=== PATIENT | female | born 1990 | race Hispanic/Latino ===

== ENCOUNTER 2017-10-10 19:50 | Observation (INO) | payer OTHER ==
[2017-10-10] MEDS ORDERED: Sodium Chloride 0.9% 1,000 ML IV STA ×2 (20:24→23:18)
[2017-10-10] MEDS ORDERED: Morphine 2 mg/ml ISec IVP STA ×2 (20:24→23:11)
[2017-10-10 20:38] LABS: HEMOGLOBIN 13.6 g/dL (12.0-16.0); MEAN CELL VOLUME 83.5 fl (80.0-105.0); MEAN CORPUSCULAR HEMOGLOBIN 27.6 pg (25.0-35.0); MEAN CORPUSCULAR HGB CONC 33.1 g/dl (31.0-37.0); MEAN PLATELET VOLUME 9.7 fl (7.0-11.0); RBC 4.92 10^6/uL (3.5-6.1); RED CELL DISTRIBUTION WIDTH 13.2 % (11.5-14.5); WHITE BLOOD COUNT 5.2 10^3/ul (4.5-11.0)
[2017-10-10 20:41] LABS: URINE BILIRUBIN NEGATIVE (NEGATIVE); URINE BLOOD NEGATIVE (NEGATIVE); URINE GLUCOSE (UA) NEGATIVE (NEGATIVE); URINE LEUKOCYTE ESTERASE SMALL Leu/uL (NEGATIVE); URINE PROTEIN TRACE mg/dL (<30 mg/dL); URINE UROBILINOGEN 0.2 E.U./dL (<1 E.U./dL)
[2017-10-10 20:42] LABS: URINE APPEARANCE CLEAR (CLEAR); URINE COLOR LIGHT YELLOW (YELLOW)
[2017-10-10 20:45] LABS: URINE BACTERIA FEW (NEG); URINE RBC 0 - 2 /hpf (0-2)
[2017-10-10 20:48] LABS: ALB/GLOB RATIO 1.4 (1.1-1.8); ALT/SGPT 27 U/L (7-56); AST/SGOT 23 U/L (14-36); BLOOD UREA NITROGEN 17 mg/dL (7-21); CALCIUM 9.8 mg/dL (8.4-10.5); GFR AFRICAN-AMERICAN > 60; GFR NON-AFRICAN AMERICAN > 60; LIPASE 154 U/L (23-300)
--- NOTE | 2017-10-10 20:58 | ED PDOC ---
Arrival/HPI - General Chief Complaint: Abdominal Pain Time Seen by Provider: 10/10/17 20:05 Historian: Patient - History of Present Illness Narrative History of Present Illness (Text): 10/10/17 20:58 27 year old female, with no significant past medical history, presents to the Emergency department complaining of right upper abdominal discomfort since earlier today. Patient informs worsening sharp pain associated with nausea, prompting her to present to the Emergency department for medical evaluation. Patient denies any fever, chills, vomiting, diarrhea, dysuria, vaginal discharge , chest pain, shortness of breath or any other complaints. Time/Duration: 4-6 hours Symptom Onset: Gradual Symptom Course: Unchanged Quality: Aching Context: Home Past Medical History - Provider Review Nursing Documentation Reviewed: Yes - Cardiac Hx Cardiac Disorders: No - Pulmonary Hx Respiratory Disorders: No - Neurological Hx Neurological Disorder: Yes Hx Migraine: Yes - HEENT Hx HEENT Disorder: No - Renal Hx Renal Disorder: No - Endocrine/Metabolic Hx Endocrine Disorders: No - Hematological/Oncological Hx Blood Disorders: No - Integumentary Hx Dermatological Disorder: No - Musculoskeletal/Rheumatological Hx Musculoskeletal Disorders: No - Gastrointestinal Hx Gastrointestinal Disorders: No - Genitourinary/Gynecological Hx Genitourinary Disorders: No - Psychiatric Hx Psychophysiologic Disorder: No Hx Substance Use: No Family/Social History - Physician Review Nursing Documentation Reviewed: Yes Family/Social History: No Known Family HX Smoking Status: Never Smoked Hx Alcohol Use: No Hx Substance Use: No Allergies/Home Meds Allergies/Adverse Reactions: Allergies No Known Allergies Allergy (Verified 10/10/17 20:06) Home Medications: Home Meds Medication Instructions Recorded Confirmed No Known Home Med 10/10/17 10/10/17 Review of Systems - Physician Review All systems were reviewed & negative as marked: Yes - Review of Systems Constitutional: absent: Fevers Respiratory: absent: SOB Cardiovascular: absent: Chest Pain Gastrointestinal: Abdominal Pain, Nausea. absent: Diarrhea, Vomiting Genitourinary Female: absent: Dysuria, Vaginal Discharge Physical Exam Vital Signs Reviewed: Yes Vital Signs Temp Pulse Resp BP Pulse Ox 10/10/17 20:06 99.2 F 102 H 22 117/81 99 Temperature: Afebrile Blood Pressure: Normal Pulse: Tachycardic Respiratory Rate: Normal Appearance: Positive for: Well-Appearing, Non-Toxic, Comfortable Pain Distress: None Mental Status: Positive for: Alert and Oriented X 3 - Systems Exam Head: Present: Atraumatic, Normocephalic Pupils: Present: PERRL Extroacular Muscles: Present: EOMI Conjunctiva: Present: Normal Respiratory/Chest: Present: Clear to Auscultation, Good Air Exchange. No: Respiratory Distress, Accessory Muscle Use Cardiovascular: Present: Regular Rate and Rhythm, Normal S1, S2. No: Murmurs Abdomen: Present: Tenderness (Tenderness to palpation on right upper quadrant ) . No: Distention, Peritoneal Signs Back: Present: Normal Inspection Upper Extremity: Present: Normal Inspection. No: Cyanosis, Edema Lower Extremity: Present: Normal Inspection. No: Edema Neurological: Present: GCS=15, CN II-XII Intact, Speech Normal Skin: Present: Warm, Dry, Normal Color. No: Rashes Psychiatric: Present: Alert, Oriented x 3, Normal Insight, Normal Concentration Medical Decision Making ED Course and Treatment: 10/10/17 20:23 Impression: 27 year old female presents to the Emergency department for right upper abdominal pain and nausea. Plan: -- Labs -- Morphine -- IV Fluids -- Zofran -- Urine Culture -- Urinalysis -- US of Gallbladder -- Reassess and disposition Prior Visits: Notes and results from previous visits were reviewed. Progress Notes: 10/10/17 21:05 US Gallbladder and Pancreas shows: Liver: Hepatic steatosis. Gallbladder: Cholelithiasis. Borderline gallbladder wall thickness. No evidence of pericholecystic fluid. Sonographic Lucero sign is negative. Common bile duct: Measures 4 mm Pancreas: Unremarkable as visualized. Right kidney: Unremarkable. No hydronephrosis. IMPRESSION: 1. Hepatic steatosis. 2. Cholelithiasis. Borderline gallbladder wall thickness. No evidence of pericholecystic fluid. Sonographic Lucero sign is negative. 10/10/17 23:[address] Beauchamp, who is aware and agrees with plan. Accepts pt in to his service. Pt will go to [facility] observation for biliary colic. Requests Dr. Bain on consult. - Lab Interpretations Lab Results: 10/10/17 20:30 10/10/17 20:30 Lab Results 10/10/17 20:30: WBC 5.2, RBC 4.92, Hgb 13.6, Hct 41.1, MCV 83.5, MCH 27.6, MCHC 33.1, RDW 13.2, Plt Count 313, MPV 9.7 10/10/17 20:30: Sodium 145, Potassium 3.7, Chloride 105, Carbon Dioxide 23, Anion Gap 21 H, BUN 17, Creatinine 0.5 L, Est GFR ( Amer) > 60, Est GFR ( Non-Af Amer) > 60, Random Glucose 103, Calcium 9.8, Total Bilirubin 0.7, AST 23 , ALT 27, Alkaline Phosphatase 75, Total Protein 8.6 H, Albumin 5.0 H, Globulin 3.5, Albumin/Globulin Ratio 1.4, Lipase 154 10/10/17 20:30: Urine Color Light yellow, Urine Appearance Clear, Urine pH 7.0, Ur Specific [place] 1.020, Urine Protein Trace H, Urine Glucose (UA) Negative, Urine Ketones Negative, Urine Blood Negative, Urine Nitrate Negative, Urine Bilirubin Negative, Urine Urobilinogen 0.2, Ur Leukocyte Esterase Small H, Urine RBC 0 - 2, Urine WBC 1 - 3, Ur Epithelial Cells 1 - 3, Urine Bacteria Few I have reviewed the lab results: Yes - RAD Interpretation Radiology Orders: 10/10/17 20:25 GALLBLADDER & PANCREAS [US] Stat Director Of Physician Practices: Radiologist - Medication Orders Current Medication Orders: Discontinued Medications Sodium Chloride (Sodium Chloride 0.9%) 1,000 mls @ 999 mls/hr IV .Q1H1M STA Stop: 10/10/17 21:24 Last Admin: 10/10/17 20:37 Dose: 999 mls/hr eMAR Start Stop Document 10/10/17 20:37 AD (Rec: 10/10/17 20:37 AD [id number]) Intravenous Solution Start Date 10/10/17 Start Time 20:37 Morphine Sulfate (Morphine) 2 mg IVP STAT STA Stop: 10/10/17 20:25 Last Admin: 10/10/17 20:37 Dose: 2 mg MAR Pain Assessment Document 10/10/17 20:37 AD (Rec: 10/10/17 20:38 AD [id number]) Pain Reassessment Is this a pain reassessment? No Presence of Pain Presence of Pain Yes Pain Scale Used Pain Scale Used Numeric Description Intensity of Pain at present 10 IVP Administration Document 10/10/17 20:37 AD (Rec: 10/10/17 20:38 AD [id number]) Charges for Administration # of IVP Administrations 1 Ondansetron HCl (Zofran Inj) 4 mg IVP ONCE ONE Stop: 10/10/17 20:25 Last Admin: 10/10/17 20:37 Dose: 4 mg IVP Administration Document 10/10/17 20:37 AD (Rec: 10/10/17 20:37 AD [id number]) Charges for Administration # of IVP Administrations 1 - Scribe Statement The provider has reviewed the documentation as recorded by the Scribe Melinda Enamorado. All medical record entries made by the Scribe were at my direction and personally dictated by me. I have reviewed the chart and agree that the record accurately reflects my personal performance of the history, physical exam, medical decision making, and the department course for this patient. I have also personally directed, reviewed, and agree with the discharge instructions and disposition. Disposition/Present on Arrival - Present on Arrival Any Indicators Present on Arrival: No History of DVT/PE: No History of Uncontrolled Diabetes: No Urinary Catheter: No History of Decub. Ulcer: No History Surgical Site Infection Following: None - Disposition Have Diagnosis and Disposition been Completed?: Yes Diagnosis: Cholelithiasis, Biliary colic, Intractable abdominal pain Disposition: HOSPITALIZED Disposition Time: 23:15 Condition: STABLE Forms: [employer] (Pakistani)
[2017-10-10] MEDS ORDERED: cefTRIAXone 1 gm 1 GM/100 ML BAG IV STA (23:12)
[2017-10-10] MEDS ORDERED: metroNIDAZOLE IV 500 mg/100 ml 500 MG/100 ML BAG IVPB STA (23:12)
[2017-10-10] MEDS ORDERED: Oxycodone/Acetaminophen 5/325 mg Tab PO PRN (23:18)
[2017-10-11 01:30] VITALS: BP 106/57; BMI 24.4
[2017-10-11] MEDS ORDERED: Sodium Chloride 0.9% 1,000 ML IV ONE (05:51)
[2017-10-11 07:32] LABS: BASO # 0.02 K/mm3 (0.0-2.0); BASO % 0.4 % (0.0-3.0); EOS # 0.1 (0.0-0.7); EOS % 1.8 % (1.5-5.0); GRAN # 2.71 (1.4-6.5); HEMOGLOBIN 11.5 g/dL (12.0-16.0); LYMPH # 1.7 (1.2-3.4); LYMPH % 34.5 % (22.0-35.0); MEAN CELL VOLUME 85.7 fl (80.0-105.0); MEAN CORPUSCULAR HEMOGLOBIN 27.3 pg (25.0-35.0); MEAN CORPUSCULAR HGB CONC 31.9 g/dl (31.0-37.0); MEAN PLATELET VOLUME 9.6 fl (7.0-11.0); MONO # 0.4 (0.1-0.6); MONO % 8.3 % (1.0-6.0); RBC 4.21 10^6/uL (3.5-6.1); RED CELL DISTRIBUTION WIDTH 13.5 % (11.5-14.5); WHITE BLOOD COUNT 4.9 10^3/ul (4.5-11.0)
[2017-10-11 07:46] LABS: ALB/GLOB RATIO 1.3 (1.1-1.8); ALBUMIN 3.7 g/dL (3.0-4.8); ALT/SGPT 24 U/L (7-56); AST/SGOT 19 U/L (14-36); BLOOD UREA NITROGEN 9 mg/dL (7-21); CALCIUM 8.3 mg/dL (8.4-10.5); GFR AFRICAN-AMERICAN > 60; GFR NON-AFRICAN AMERICAN > 60
[2017-10-11 08:15] VITALS: PULSE 65; RESP 20; TEMP 97; O2SAT 99
--- NOTE | 2017-10-11 08:22 | CP.PCM.CON ---
History of Present Illness - History of Present Illness History of Present Illness: GENERAL SURGERY CONSULT NOTE FOR DR. PADILLA 27yo F with no PMHx presents to the ED with abdominal pain. The pain began 2 hours prior to arrival and is located in the RUQ/right flank. She reports similar episodes that occurred a few times over the past month but resolved on their own. Pt reported nausea but no vomiting. Denies diarrhea or constipation. Pt denies association with certain types of food and the food occurred after eating a rice/grilled chicken bowl. PMHx: none Surgeries: none Allergies: none Review of Systems - Review of Systems All systems: reviewed and no additional remarkable complaints except (as per hpi ) Past Patient History - Past Social History Smoking Status: Never Smoked - CARDIAC Hx Cardiac Disorders: No - PULMONARY Hx Respiratory Disorders: No - NEUROLOGICAL Hx Migraine: Yes - HEENT Hx HEENT Problems: No - RENAL Hx Chronic Kidney Disease: No - ENDOCRINE/METABOLIC Hx Endocrine Disorders: No - HEMATOLOGICAL/ONCOLOGICAL Hx Blood Disorders: No - INTEGUMENTARY Hx Dermatological Problems: No - MUSCULOSKELETAL/RHEUMATOLOGICAL Hx Falls: No - GASTROINTESTINAL Hx Gastrointestinal Disorders: No - GENITOURINARY/GYNECOLOGICAL Hx Genitourinary Disorders: No - PSYCHIATRIC Hx Substance Use: No - SURGICAL HISTORY Hx Surgeries: No Meds Allergies/Adverse Reactions: Allergies Allergy/AdvReac Type Severity Reaction Status Date / Time No Known Allergies Allergy Verified 10/10/17 20:06 - Medications Medications: Current Medications Sodium Chloride (Sodium Chloride 0.9%) 1,000 mls @ 100 mls/hr IV .Q10H STA Stop: 10/11/17 09:17 Last Admin: 10/10/17 23:33 Dose: 100 mls/hr Sodium Chloride (Sodium Chloride 0.9%) 1,000 mls @ 100 mls/hr IV .Q10H ONE Stop: 10/11/17 15:50 Ondansetron HCl (Zofran Inj) 4 mg IVP Q6H PRN PRN Reason: Nausea/Vomiting Oxycodone/Acetaminophen (Percocet 5/325 Mg Tab) 1 tab PO Q4H PRN PRN Reason: Pain, moderate (4-7) Stop: 10/11/17 11:00 Physical Exam - Constitutional Appears: Well, Non-toxic, No Acute Distress - Head Exam Head Exam: ATRAUMATIC, NORMAL INSPECTION - Eye Exam Eye Exam: EOMI, Normal appearance - Respiratory Exam Respiratory Exam: NORMAL BREATHING PATTERN. absent: Respiratory Distress - Cardiovascular Exam Cardiovascular Exam: +S1, +S2 - GI/Abdominal Exam GI & Abdominal Exam: Soft. absent: Distended, Firm, Guarding, Rebound, Rigid, Tenderness Additional comments: Negative sonographic [place] sign - Neurological Exam Neurological exam: Alert, CN II-XII Intact, Oriented x3 - Psychiatric Exam Psychiatric exam: Normal Affect, Normal Mood - Skin Skin Exam: Dry, Normal Color, Warm Results - Vital Signs Recent Vital Signs: Last Vital Signs Temp 97 F L 10/11/17 08:14 Pulse 65 10/11/17 08:14 Resp 20 10/11/17 08:14 BP 106/57 L 10/11/17 08:14 Pulse Ox 99 10/11/17 08:14 - Labs Result Diagrams: 10/11/17 07:20 10/11/17 07:20 Labs: Laboratory Results - last 24 hr 10/11/17 10/11/17 07:20 07:20 WBC 4.9 RBC 4.21 Hgb 11.5 L D Hct 36.1 MCV 85.7 MCH 27.3 MCHC 31.9 RDW 13.5 Plt Count 261 MPV 9.6 Gran % 55.0 Lymph % (Auto) 34.5 [place] % (Auto) 8.3 H Eos % (Auto) 1.8 Baso % (Auto) 0.4 Gran # 2.71 Lymph # (Auto) 1.7 [place] # (Auto) 0.4 Eos # (Auto) 0.1 Baso # (Auto) 0.02 Sodium 142 Potassium 3.8 Chloride 109 H Carbon Dioxide 25 Anion Gap 12 BUN 9 Creatinine 0.5 L Est GFR ( Amer) > 60 Est GFR (Non-Af Amer) > 60 Random Glucose 83 Calcium 8.3 L Total Bilirubin 0.8 AST 19 ALT 24 Alkaline Phosphatase 57 Total Protein 6.6 Albumin 3.7 Globulin 2.9 Albumin/Globulin Ratio 1.3 Assessment & Plan - Assessment and Plan (Free Text) Assessment: 27yo F with no PMHx presents with biliary colic - Afebrile, VSS - No leukocytosis - US: cholelithiasis, borderline gallbladder wall thickness, no pericholecystic fluid, neg sono Lucero sign, CBD 4mm - Pt asymptomatic, completely non tender - Clear for DC home to follow up outpatient to schedule elective cholecystectomy - Discussed plan with Dr. Odell Adamson PGY-4
--- NOTE | 2017-10-11 09:03 | CP.PCM.HP ---
<Carl Iqbal - Last Filed: 10/11/17 18:27> History of Present Illness - History of Present Illness History of Present Illness: Medicine H&P and discharge note for Dr. Beauchamp's service - Elvi Iqbal PGY3 HPI: Patient is a 27yo female with no significant past medical history that presented to [facility] with c/o abdominal pain. She reported that the pain began 2 hours prior to arrival and localized to the RUQ/right flank. She reported similar episodes that occurred a few times over the past month that resolved on their own without intervention or oral medication. She admitted to nausea but denied vomiting. She denied chest pain, palpitations, SOB , fever, chills, cough, focal weakness, numbness, tingling, dysuria, frequency, urgency. 12point ROS as per above otherwise negative PMHx: as stated above PSHx: denies Allergies: NKDA Social Hx: denies tobacco, alcohol and illicit drug use Family Hx: non-contributory Present on Admission - Present on Admission Any Indicators Present on Admission: No Past Patient History - Past Social History Smoking Status: Never Smoked - CARDIAC Hx Cardiac Disorders: No - PULMONARY Hx Respiratory Disorders: No - NEUROLOGICAL Hx Migraine: Yes - HEENT Hx HEENT Problems: No - RENAL Hx Chronic Kidney Disease: No - ENDOCRINE/METABOLIC Hx Endocrine Disorders: No - HEMATOLOGICAL/ONCOLOGICAL Hx Blood Disorders: No - INTEGUMENTARY Hx Dermatological Problems: No - MUSCULOSKELETAL/RHEUMATOLOGICAL Hx Falls: No - GASTROINTESTINAL Hx Gastrointestinal Disorders: No - GENITOURINARY/GYNECOLOGICAL Hx Genitourinary Disorders: No - PSYCHIATRIC Hx Substance Use: No - SURGICAL HISTORY Hx Surgeries: No Meds Allergies/Adverse Reactions: Allergies Allergy/AdvReac Type Severity Reaction Status Date / Time No Known Allergies Allergy Verified 10/10/17 20:06 Physical Exam - Constitutional Appears: No Acute Distress - Head Exam Head Exam: ATRAUMATIC, NORMAL INSPECTION, NORMOCEPHALIC - Eye Exam Eye Exam: EOMI Pupil Exam: PERRL - ENT Exam ENT Exam: Mucous Membranes Moist - Neck Exam Neck exam: Positive for: Normal Inspection - Respiratory Exam Respiratory Exam: absent: Rales, Rhonchi, Wheezes - Cardiovascular Exam Cardiovascular Exam: RRR, +S1, +S2. absent: Clicks, Gallop, JVD - GI/Abdominal Exam GI & Abdominal Exam: Soft, Tenderness (RUQ). absent: Distended, Guarding, Rebound, Rigid - Extremities Exam Extremities exam: Positive for: normal inspection. Negative for: pedal edema - Back Exam Back exam: NORMAL INSPECTION - Neurological Exam Neurological exam: Alert, CN II-XII Intact, Oriented x3 - Psychiatric Exam Psychiatric exam: Normal Affect, Normal Mood - Skin Skin Exam: Dry, Intact, Normal Color, Warm Results - Vital Signs Recent Vital Signs: Last Vital Signs Temp 97 F L 10/11/17 08:14 Pulse 65 10/11/17 08:14 Resp 20 10/11/17 08:14 BP 106/57 L 10/11/17 08:14 Pulse Ox 99 10/11/17 08:14 - Labs Result Diagrams: 10/11/17 07:20 10/11/17 07:20 Labs: Laboratory Results - last 24 hr 10/11/17 10/11/17 07:20 07:20 WBC 4.9 RBC 4.21 Hgb 11.5 L D Hct 36.1 MCV 85.7 MCH 27.3 MCHC 31.9 RDW 13.5 Plt Count 261 MPV 9.6 Gran % 55.0 Lymph % (Auto) 34.5 [place] % (Auto) 8.3 H Eos % (Auto) 1.8 Baso % (Auto) 0.4 Gran # 2.71 Lymph # (Auto) 1.7 [place] # (Auto) 0.4 Eos # (Auto) 0.1 Baso # (Auto) 0.02 Sodium 142 Potassium 3.8 Chloride 109 H Carbon Dioxide 25 Anion Gap 12 BUN 9 Creatinine 0.5 L Est GFR ( Amer) > 60 Est GFR (Non-Af Amer) > 60 Random Glucose 83 Calcium 8.3 L Total Bilirubin 0.8 AST 19 ALT 24 Alkaline Phosphatase 57 Total Protein 6.6 Albumin 3.7 Globulin 2.9 Albumin/Globulin Ratio 1.3 Assessment & Plan - Assessment and Plan (Free Text) Plan: 27yo female with no significant history presents c/o RUQ abdominal pain secondary to biliary colic 1. Biliary colic 2. Cholelithiasis -Abdominal US reviewed; revealed cholelithiasis with no evidence of acute cholecystitis or CBD dilatation -Liver profile within normal limits -Zofran for nausea/vomiting -IVF hydration -She was seen and evaluated by the surgical team. They recommended outpatient follow up with Dr. Bain to be scheduled for outpatient cholecystectomy. -Patient reported improvement of her symptoms and was given instructions to make an appointment with Dr. Bain's office for follow up. She was agreeable to the plan provided and subsequently discharged home. Patient seen and case discussed/reviewed with attending, Dr. Beauchamp <Andres Beauchamp S - Last Filed: 10/11/17 21:50> Results - Vital Signs Recent Vital Signs: Last Vital Signs Temp 97 F L 10/11/17 08:14 Pulse 65 10/11/17 08:14 Resp 20 10/11/17 08:14 BP 106/57 L 10/11/17 08:14 Pulse Ox 99 10/11/17 08:14 - Labs Result Diagrams: 10/11/17 07:20 10/11/17 07:20 Labs: Laboratory Results - last 24 hr 10/11/17 10/11/17 07:20 07:20 WBC 4.9 RBC 4.21 Hgb 11.5 L D Hct 36.1 MCV 85.7 MCH 27.3 MCHC 31.9 RDW 13.5 Plt Count 261 MPV 9.6 Gran % 55.0 Lymph % (Auto) 34.5 [place] % (Auto) 8.3 H Eos % (Auto) 1.8 Baso % (Auto) 0.4 Gran # 2.71 Lymph # (Auto) 1.7 [place] # (Auto) 0.4 Eos # (Auto) 0.1 Baso # (Auto) 0.02 Sodium 142 Potassium 3.8 Chloride 109 H Carbon Dioxide 25 Anion Gap 12 BUN 9 Creatinine 0.5 L Est GFR ( Amer) > 60 Est GFR (Non-Af Amer) > 60 Random Glucose 83 Calcium 8.3 L Total Bilirubin 0.8 AST 19 ALT 24 Alkaline Phosphatase 57 Total Protein 6.6 Albumin 3.7 Globulin 2.9 Albumin/Globulin Ratio 1.3 Assessment & Plan - Assessment and Plan (Free Text) Plan: Pt seen and examined. I have reviewed the note of the medical records supervisor and agree with it. I have discussed the assessment and plan with the resident. I have reviewed the patient's labs and medications. Biliary colic improved. He was seen by surgery and will f/u as outpt for surgery. Pain controlled and does not require any more medications. She will also follow up with PMD
--- NOTE | 2017-10-11 09:12 | US ---
Date of service: 10/10/2017 HISTORY: right upper abdominal pain COMPARISON: None. TECHNIQUE: Grayscale imaging was performed. FINDINGS: LIVER: Measures 14.0 cm in length. There is diffuse increased echogenicity of the liver parenchyma. No mass. No intrahepatic bile duct dilatation. GALLBLADDER: There is a solitary 1.4 cm gallstone in the region of the neck. There is mild gallbladder wall thickening without pericholecystic fluid. The sonographic Lucero's sign is negative. COMMON BILE DUCT: Measures 4.0 mm. No stones. No dilatation. PANCREAS: Unremarkable as visualized. No mass. No ductal dilatation. RIGHT KIDNEY: Measures 9.5 cm in length. Normal echogenicity. No calculus, mass, or hydronephrosis. AORTA: No aneurysmal dilatation. IVC: Unremarkable. OTHER FINDINGS: None . IMPRESSION: Diffuse increased echogenicity in the liver may reflect hepatic steatosis however parenchymal infectious/ inflammatory etiologies cannot be entirely excluded. Clinical and laboratory correlation is advised. Cholelithiasis. Mild gallbladder wall thickening without pericholecystic fluid. The sonographic Lucero's sign is negative. Clinical follow-up is advised. A preliminary report was provided by [employer].
== END 2017-10-11 11:50 | disposition home or self-care (01) ==
LOC: ED 19:50 → ERH 23:16 → 3RNO 10-11 00:49
PROVIDERS: ADMIT Internal Medicine Nephrology; ATTEND Internal Medicine Nephrology
DX: K80.20 Calculus of gallbladder without cholecystitis without obstruction (principal); K76.0 Fatty (change of) liver, not elsewhere classified; Z86.69 Personal history of other diseases of the nervous system and sense organs
CPT/HCPCS: 36415; 76705; 80053; 81001; 83690; 85025; 85027; 87040; 87086; 96374; 96375; 96376; 99284; G0378; J0696; J2270; J2405; J7030

== ENCOUNTER 2017-12-07 01:22 | Observation (INO) | payer OTHER ==
[2017-12-07 01:24] VITALS: BMI 24.4
[2017-12-07] MEDS ORDERED: Morphine 4 mg/ml ISec IVP STA (01:49)
[2017-12-07] MEDS ORDERED: Sodium Chloride 0.9% 1,000 ML IV STA ×2 (01:49→03:19)
--- NOTE | 2017-12-07 01:54 | ED PDOC ---
Arrival/HPI - General Chief Complaint: Abdominal Pain Time Seen by Provider: 12/07/17 01:29 Historian: Patient - History of Present Illness Narrative History of Present Illness (Text): 12/07/17 01:51 27 year old female, whose past medical history includes chronic intractable abdominal pain and cholelithiasis, presents with RUQ abdominal pain. Patient states she has a history of gallstones and was suppose to have cholecystectomy, but never did. Patient informs of nausea, but denies vomiting or diarrhea. Patient denies any fever, chills, headache, dizziness, chest pain, shortness of breath, cough, back pain, neck pain, urinary/bowel changes, or any other complaint. Time/Duration: Prior to Arrival Past Medical History - Provider Review Nursing Documentation Reviewed: Yes - Infectious Disease Hx of Infectious Diseases: None - Cardiac Hx Cardiac Disorders: No - Pulmonary Hx Respiratory Disorders: No - Neurological Hx Migraine: Yes - HEENT Hx HEENT Disorder: No - Renal Hx Renal Disorder: No - Endocrine/Metabolic Hx Endocrine Disorders: No - Hematological/Oncological Hx Blood Disorders: No - Integumentary Hx Dermatological Disorder: No - Musculoskeletal/Rheumatological Hx Falls: No - Gastrointestinal Hx Gastrointestinal Disorders: No - Genitourinary/Gynecological Hx Genitourinary Disorders: No - Psychiatric Hx Psychophysiologic Disorder: No Hx Substance Use: No - Anesthesia Hx Anesthesia: No Family/Social History - Physician Review Nursing Documentation Reviewed: Yes Family/Social History: No Known Family HX Smoking Status: Never Smoked Hx Alcohol Use: No Hx Substance Use: No Allergies/Home Meds Allergies/Adverse Reactions: Allergies No Known Allergies Allergy (Verified 12/07/17 01:41) Home Medications: Home Meds Medication Instructions Recorded Confirmed No Known Home Med 12/07/17 12/07/17 Review of Systems - Physician Review All systems were reviewed & negative as marked: Yes - Review of Systems Constitutional: Normal. absent: Fevers, Night Sweats Eyes: Normal ENT: Normal Respiratory: Normal. absent: SOB, Cough Cardiovascular: Normal. absent: Chest Pain Gastrointestinal: Abdominal Pain, Nausea. absent: Diarrhea, Vomiting Genitourinary Female: Normal. absent: Urine Output Changes Musculoskeletal: Normal. absent: Back Pain, Neck Pain Skin: Normal Neurological: Normal. absent: Headache, Dizziness Endocrine: Normal Hemo/Lymphatic: Normal Psychiatric: Normal Physical Exam Vital Signs Reviewed: Yes Vital Signs Temp Pulse Resp BP Pulse Ox 12/07/17 01:38 98.6 F 78 18 106/79 99 Temperature: Afebrile Blood Pressure: Normal Pulse: Regular Respiratory Rate: Normal Appearance: Positive for: Well-Appearing, Non-Toxic, Comfortable Pain Distress: None Mental Status: Positive for: Alert and Oriented X 3 - Systems Exam Head: Present: Atraumatic, Normocephalic Pupils: Present: PERRL Extroacular Muscles: Present: EOMI Conjunctiva: Present: Normal Mouth: Present: Moist Mucous Membranes Neck: Present: Normal Range of Motion Respiratory/Chest: Present: Clear to Auscultation, Good Air Exchange. No: Respiratory Distress, Accessory Muscle Use Cardiovascular: Present: Regular Rate and Rhythm, Normal S1, S2. No: Murmurs Abdomen: Present: Tenderness (RUQ Tenderness ). No: Distention, Peritoneal Signs Back: Present: Normal Inspection Upper Extremity: Present: Normal Inspection. No: Cyanosis, Edema Lower Extremity: Present: Normal Inspection. No: Edema Neurological: Present: GCS=15, CN II-XII Intact, Speech Normal Skin: Present: Warm, Dry, Normal Color. No: Rashes Psychiatric: Present: Alert, Oriented x 3, Normal Insight, Normal Concentration Medical Decision Making ED Course and Treatment: 12/07/17 01:56 Impression: 27 year old female presents with RUQ pain. Plan: -- Labs -- Morphine -- Zofran -- Urinalysis -- Reassess and disposition Prior Visits: Notes and results from previous visits were reviewed. pt with abdominal pain will obs case d/w dr villarreal Progress Notes: 12/07/17 03:37 - Lab Interpretations Lab Results: 12/07/17 02:09 12/07/17 02:09 Lab Results 12/07/17 02:09: Urine Color Yellow, Urine Appearance Cloudy, Urine pH 7.0, Ur Specific [place] 1.020, Urine Protein Negative, Urine Glucose (UA) Negative, Urine Ketones Negative, Urine Blood Negative, Urine Nitrate Negative, Urine Bilirubin Negative, Urine Urobilinogen 0.2, Ur Leukocyte Esterase Trace H, Urine RBC 0 - 2, Urine WBC 1 - 3, Ur Epithelial Cells 3 - 4, Amorphous Sediment Moderate, Urine Bacteria Rare, Urine HCG, Qual Negative 12/07/17 02:09: Sodium 141, Potassium 3.9, Chloride 107, Carbon Dioxide 28, Anion Gap 10, BUN 11, Creatinine 0.6 L, Est GFR ( Amer) > 60, Est GFR ( Non-Af Amer) > 60, Random Glucose 96, Calcium 9.7, Magnesium 2.1, Total Bilirubin 0.6, AST 21, ALT 20, Alkaline Phosphatase 58, Total Protein 7.5, Albumin 4.3, Globulin 3.1, Albumin/Globulin Ratio 1.4, Lipase 86 12/07/17 02:09: PT 11.6, INR 1.02, APTT 26.9 12/07/17 02:09: WBC 5.8, RBC 4.64, Hgb 13.3, Hct 40.4, MCV 87.1, MCH 28.7, MCHC 32.9, RDW 13.4, Plt Count 239, MPV 9.9, Gran % 60.0, Lymph % (Auto) 30.6, [place] % (Auto) 8.2 H, Eos % (Auto) 0.7 L, Baso % (Auto) 0.5, Gran # 3.45, Lymph # ( Auto) 1.8, [place] # (Auto) 0.5, Eos # (Auto) 0.0, Baso # (Auto) 0.03 - Medication Orders Current Medication Orders: Sodium Chloride (Sodium Chloride 0.9%) 1,000 mls @ 100 mls/hr IV .Q10H STA Stop: 12/07/17 13:18 Last Admin: 12/07/17 03:32 Dose: 100 mls/hr eMAR Start Stop Document 12/07/17 03:32 SS (Rec: 12/07/17 03:32 SS [id number]) Intravenous Solution Start Date 12/07/17 Start Time 03:32 Morphine Sulfate (Morphine) 2 mg IVP Q4H PRN PRN Reason: Pain, moderate (4-7) Ondansetron HCl (Zofran Inj) 4 mg IVP Q6H PRN PRN Reason: Nausea/Vomiting Discontinued Medications Sodium Chloride (Sodium Chloride 0.9%) 1,000 mls @ 1,000 mls/hr IV .Q1H STA Stop: 12/07/17 02:48 Last Admin: 12/07/17 02:52 Dose: 1,000 mls/hr eMAR Start Stop Document 12/07/17 02:52 SS (Rec: 12/07/17 02:52 [id number]) Intravenous Solution Start Date 12/07/17 Start Time 02:52 End Date 12/07/17 End time 03:52 Total Infusion Time 60 Morphine Sulfate (Morphine) 4 mg IVP STAT STA Stop: 12/07/17 01:50 Last Admin: 12/07/17 02:52 Dose: 4 mg MAR Pain Assessment Document 12/07/17 02:52 SS (Rec: 12/07/17 02:[id number] Pain Reassessment Is this a pain reassessment? No Sleep Is patient sleeping during reassessment? No Presence of Pain Presence of Pain Yes Pain Scale Used Pain Scale Used Numeric Location Pain Location Body Site Abdomen IVP Administration Document 12/07/17 02:52 SS (Rec: 12/07/17 02:52 [id number]) Charges for Administration # of IVP Administrations 1 Ondansetron HCl (Zofran Inj) 4 mg IVP STAT STA Stop: 12/07/17 01:50 Last Admin: 12/07/17 02:52 Dose: 4 mg IVP Administration Document 12/07/17 02:52 SS (Rec: 12/07/17 02:52 [id number]) Charges for Administration # of IVP Administrations 1 - Scribe Statement The provider has reviewed the documentation as recorded by the [place] Provider Scribe Attestation: All medical record entries made by the Scribe were at my direction and personally dictated by me. I have reviewed the chart and agree that the record accurately reflects my personal performance of the history, physical exam, medical decision making, and the department course for this patient. I have also personally directed, reviewed, and agree with the discharge instructions and disposition. Disposition/Present on Arrival - Present on Arrival Any Indicators Present on Arrival: No History of DVT/PE: No History of Uncontrolled Diabetes: No Urinary Catheter: No History of Decub. Ulcer: No History Surgical Site Infection Following: None - Disposition Have Diagnosis and Disposition been Completed?: Yes Diagnosis: Cholelithiasis, Intractable abdominal pain Disposition: HOSPITALIZED Disposition Time: 03:15 Condition: GOOD
[2017-12-07 02:27] LABS: URINE BILIRUBIN NEGATIVE (NEGATIVE); URINE BLOOD NEGATIVE (NEGATIVE); URINE GLUCOSE (UA) NEGATIVE (NEGATIVE); URINE LEUKOCYTE ESTERASE TRACE Leu/uL (NEGATIVE); URINE PROTEIN NEGATIVE mg/dL (<30 mg/dL); URINE UROBILINOGEN 0.2 E.U./dL (<1 E.U./dL)
[2017-12-07 02:29] LABS: BASO # 0.03 K/mm3 (0.0-2.0); BASO % 0.5 % (0.0-3.0); EOS % 0.7 % (1.5-5.0); GRAN # 3.45 (1.4-6.5); HEMOGLOBIN 13.3 g/dL (12.0-16.0); LYMPH # 1.8 (1.2-3.4); LYMPH % 30.6 % (22.0-35.0); MEAN CELL VOLUME 87.1 fl (80.0-105.0); MEAN CORPUSCULAR HEMOGLOBIN 28.7 pg (25.0-35.0); MEAN CORPUSCULAR HGB CONC 32.9 g/dl (31.0-37.0); MEAN PLATELET VOLUME 9.9 fl (7.0-11.0); MONO # 0.5 (0.1-0.6); MONO % 8.2 % (1.0-6.0); RBC 4.64 10^6/uL (3.5-6.1); RED CELL DISTRIBUTION WIDTH 13.4 % (11.5-14.5); WHITE BLOOD COUNT 5.8 10^3/ul (4.5-11.0)
[2017-12-07 02:37] LABS: HCG,QUALITATIVE URINE NEGATIVE (NEGATIVE); URINE APPEARANCE CLOUDY (CLEAR); URINE COLOR YELLOW (YELLOW)
[2017-12-07 02:40] LABS: URINE BACTERIA RARE (NEG); URINE RBC 0 - 2 /hpf (0-2)
[2017-12-07 02:41] LABS: INR 1.02; PARTIAL THROMBOPLASTIN TIME 26.9 Seconds (25.1-36.5); PROTHROMBIN TIME 11.6 SECONDS (9.4-12.5); URINE AMORPHOUS SEDIMENT MODERATE
[2017-12-07 02:43] LABS: ALB/GLOB RATIO 1.4 (1.1-1.8); ALBUMIN 4.3 g/dL (3.0-4.8); ALT/SGPT 20 U/L (7-56); AST/SGOT 21 U/L (14-36); BLOOD UREA NITROGEN 11 mg/dL (7-21); CALCIUM 9.7 mg/dL (8.4-10.5); GFR NON-AFRICAN AMERICAN > 60; LIPASE 86 U/L (23-300)
[2017-12-07] MEDS: Morphine 2 mg/ml ISec IVP PRN (04:14)
[2017-12-07] MEDS ORDERED: Pneumococcal 23-Valent Vaccine IM ONE (04:42)
--- NOTE | 2017-12-07 05:43 | CP.PCM.CON ---
History of Present Illness - History of Present Illness History of Present Illness: General Surgery Dr. Bain 27 y/o F w/ known cholelithiasis presented to the ED c/o abd pain. pain similar to previous "gallbladder attacks" though less intense. Pain worse in RUQ but felt across upper abd. Pt reports eating chipotle shrimp empanada for lunch which pt believes to be the cause of her "attack". Pt has had 2, more intense attacks this summer, and wants her gallbladder removed. Pt admits to associated nausea but denies F/C, CP, SOB, vomiting, D/C. PMHx: cholelithiasis, migraines Meds: reviewed in chart NKDA PSHx: denies SHx: denies tobacco, EtOH, drug use FHx: DM2, CAD/HTN Review of Systems - Review of Systems All systems: reviewed and no additional remarkable complaints except (see HPI) Past Patient History - Infectious Disease Hx of Infectious Diseases: None - Past Social History Smoking Status: Never Smoked - CARDIAC Hx Cardiac Disorders: No - PULMONARY Hx Respiratory Disorders: No - NEUROLOGICAL Hx Migraine: Yes - HEENT Hx HEENT Problems: No - RENAL Hx Chronic Kidney Disease: No - ENDOCRINE/METABOLIC Hx Endocrine Disorders: No - HEMATOLOGICAL/ONCOLOGICAL Hx Blood Disorders: No - INTEGUMENTARY Hx Dermatological Problems: No - MUSCULOSKELETAL/RHEUMATOLOGICAL Hx Falls: No - GASTROINTESTINAL Hx Gastrointestinal Disorders: No - GENITOURINARY/GYNECOLOGICAL Hx Genitourinary Disorders: No - PSYCHIATRIC Hx Psychophysiologic Disorder: No - SURGICAL HISTORY Hx Surgeries: No - ANESTHESIA Hx Anesthesia: No Meds Allergies/Adverse Reactions: Allergies Allergy/AdvReac Type Severity Reaction Status Date / Time No Known Allergies Allergy Verified 12/07/17 01:41 - Medications Medications: Current Medications Sodium Chloride (Sodium Chloride 0.9%) 1,000 mls @ 100 mls/hr IV .Q10H STA Stop: 12/07/17 13:18 Last Admin: 12/07/17 03:32 Dose: 100 mls/hr Lactated Ringer's (Lactated Ringer's) 1,000 mls @ 120 mls/hr IV .Q8H20M AYLA Morphine Sulfate (Morphine) 2 mg IVP Q4H PRN PRN Reason: Pain, moderate (4-7) Last Admin: 12/07/17 04:14 Dose: 2 mg Ondansetron HCl (Zofran Inj) 4 mg IVP Q6H PRN PRN Reason: Nausea/Vomiting Physical Exam - Constitutional Appears: Non-toxic, No Acute Distress - Head Exam Head Exam: NORMAL INSPECTION - Eye Exam Eye Exam: Normal appearance - ENT Exam ENT Exam: Mucous Membranes Moist - Respiratory Exam Respiratory Exam: NORMAL BREATHING PATTERN. absent: Accessory Muscle Use, Respiratory Distress - Cardiovascular Exam Cardiovascular Exam: REGULAR RHYTHM. absent: Bradycardia, Tachycardia - GI/Abdominal Exam GI & Abdominal Exam: Soft. absent: Distended, Firm, Guarding, Rebound, Rigid, Tenderness - Expanded GI/Abdominal Exam Expanded Expanded GI & Abdominal Exam: absent: Lucero's Sign - Extremities Exam Extremities exam: Positive for: normal inspection - Neurological Exam Neurological exam: Alert, Oriented x3 - Psychiatric Exam Psychiatric exam: Normal Affect, Normal Mood - Skin Skin Exam: Dry, Intact, Normal Color, Warm Results - Vital Signs Recent Vital Signs: Last Vital Signs Temp 98.0 F 12/07/17 04:30 Pulse 62 12/07/17 04:30 Resp 20 12/07/17 04:30 BP 107/66 12/07/17 04:30 Pulse Ox 99 12/07/17 04:16 - Labs Result Diagrams: 12/07/17 02:09 12/07/17 02:09 - Imaging and Cardiology US - abdomen Status: Image reviewed by me Assessment & Plan - Assessment and Plan (Free Text) Assessment: 27 y/o F w/ resolved abd pain likely 2/2 biliary cholic - CLD - IV Abx - non-narcotic pain management - anti-emetic - encourage OOB to chair/Amb - Plan for OR tomorrow, 12/08, for lap ngozi - NPO @[facility] Pt discussed w/ Dr. Odell Dow DO PGY3
[2017-12-07] MEDS: Lactated Ringer's 1,000 ML IV SCH ×2 (06:28→20:30)
--- NOTE | 2017-12-07 09:22 | HP ---
CHIEF COMPLAINT AND HISTORY OF PRESENT ILLNESS: This is a 27-year-old female who is coming into the hospital complaining of right upper quadrant abdominal pain. The patient was admitted to the hospital on 09/2017 for cholelithiasis and abdominal pain. The patient had improvement of her symptoms. She was supposed to get outpatient surgery but it did not happen. She says that the pain was significant, it was about 6-7/10. She had nausea but no vomiting. She denies any fevers or chills. No weakness in the arms or the legs. No dizziness. No back pain. REVIEW OF SYMPTOMS: All other review of symptoms are within normal limits except that was mentioned. ALLERGIES: NO KNOWN DRUG ALLERGIES. PAST MEDICAL HISTORY: Cholelithiasis and migraines. SOCIAL HISTORY: No smoking, drinking or drugs. PAST SURGICAL HISTORY: No surgical history. FAMILY HISTORY: Noncontributory. PHYSICAL EXAMINATION: VITAL SIGNS: Temperature is 98, pulse of 62, blood pressure 107/66, respirations 20, O2 saturation 99%. Height is 5 feet 3 inches, weight is 138 pounds, BMI is 24.4. GENERAL: The patient lying in bed, uncomfortable, and in no acute distress. HEENT: Atraumatic and normocephalic. Anicteric sclerae. Moist mucosa. Theba conjunctivae. No oral lesions. NECK: No JVD, anterior and posterior adenopathy, thyromegaly, or bruits. CARDIOVASCULAR: S1 and S2 regular. No murmur, rubs, or gallop. LUNGS: Clear to auscultation bilaterally. No wheezes, rales, or rhonchi. ABDOMEN: Bowel sounds are positive. Soft, nontender and nondistended. No hepatosplenomegaly. No rebound and no guarding EXTREMITIES: No cyanosis, clubbing, or edema. NEUROLOGIC: No facial asymmetry. Tongue is midline. No uvula deviation. Power is 5/5 upper extremity and lower extremity. Sensation intact in upper extremity and lower extremity. PSYCHIATRIC: She is awake, alert and oriented x3. No anxiety or depression. She has normal affect. GENITOURINARY: No CVA tenderness. VASCULAR: 2+ pulses in the carotid pulses and pedal pulses. SKIN: No erythema or nodules SPINE: Shows normal curvature. LABORATORY DATA: Labs have been reviewed. White count of 5.8. The patient's creatinine is 0.6. AST and ALT is 21 and 20. Urine shows rbc's is negative, wbc's is negative. ASSESSMENT: 1. Abdominal pain secondary to cholelithiasis. 2. Migraine headaches. PLAN: The patient's abdominal pain is better. She is going to be discharged home if she is cleared by Surgery, the patient will most likely have surgery possibly as an outpatient. She was placed on IV fluids. She is given morphine for pain. She is on Zofran. She has done ultrasound of the abdomen that has been ordered. She is being seen by Surgery with Dr. Bain. We will await further input from surgeons. Andres Beauchamp MD
[2017-12-07] MEDS ORDERED: levoFLOXacin 500 mg in D5W 500 MG/100 ML BAG IVPB SCH (10:00)
[2017-12-07] MEDS: metroNIDAZOLE IV 500 mg/100 ml 500 MG/100 ML BAG IVPB SCH ×3 (11:45→21:54)
--- NOTE | 2017-12-07 11:53 | US ---
Date of service: 12/07/2017 HISTORY: cholelithiasis COMPARISON: 09/30/2017 abdominal ultrasound TECHNIQUE: Sonographic evaluation of the abdomen. FINDINGS: LIVER: Measures 16.9 cm. Patent portal vein. Portal venous flow: Hepatopetal. Unremarkable echogenicity of the liver parenchyma. No mass. No intrahepatic bile duct dilatation. GALLBLADDER: Cholelithiasis. Negative study for gallbladder wall thickening, pericholecystic fluid, sonographic Lucero's sign. COMMON BILE DUCT: Measures 5.5 mm. No stones. No dilatation. PANCREAS: Unremarkable as visualized. No mass. No ductal dilatation. RIGHT KIDNEY: Measures 4.2 x 11.5cm. Normal echogenicity. No calculus, mass, or hydronephrosis. LEFT KIDNEY: Measures 4.7 x 11.9cm. Normal echogenicity. No calculus, mass, or hydronephrosis. SPLEEN: Normal in size and contour. No mass. AORTA: No aneurysmal dilatation. IVC: Unremarkable. OTHER FINDINGS: None. IMPRESSION: Cholelithiasis. No sonographic evidence of acute cholecystitis. No evident gallbladder wall thickening or pericholecystic fluid.
--- NOTE | 2017-12-07 12:02 | CON ---
DATE: 12/07/2017 REQUESTING PHYSICIAN: Andres Beauchamp MD HISTORY OF PRESENT ILLNESS: I have been asked to see this 27-year-old female with known gallstones, admitted to the hospital 2 months ago on September 2017 with similar presentation, found to have a gallstone with gallbladder wall edema and thickening, who comes to the hospital now with epigastric and right upper quadrant pain which started several hours prior to admission. The patient states that she had nausea, but no vomiting. The patient apparently was supposed to have elective cholecystectomy, but this was never performed. She denies any fevers, chills, jaundice or dark urine. PAST MEDICAL HISTORY: Notable for migraines and cholelithiasis. SOCIAL HISTORY: She denies cigarette smoking or alcohol use. FAMILY HISTORY: Noncontributory. MEDICATIONS AT HOME: Were none. PHYSICAL EXAMINATION: VITAL SIGNS: Reveal temperature of 98, blood pressure 106/66, heart rate 67. HEENT: Reveal sclerae to be white. Conjunctivae pink. NECK: Supple. CHEST: Lungs are clear. HEART: Reveals regular rate and rhythm. ABDOMEN: Flabby, soft, nontender. EXTREMITIES: Show no edema. LABORATORY DATA: Reveal white blood cell count 5.8, hemoglobin 13.3. Chemistries reveal normal electrolytes, normal LFTs. Ultrasound of the abdomen shows a large stone in the neck of the gallbladder. CBD is normal at 0.38 cm. IMPRESSION: Biliary colic, symptomatic and recurrent. RECOMMENDATIONS: Cholecystectomy. Sanya Albrecht MD
--- NOTE | 2017-12-07 18:32 | CARD ---
APPROVED REPORT Date of service: 12/07/2017 EKG Measurement Heart [id number] <Conclusion> Normal sinus rhythm Normal ECG
[2017-12-08] MEDS: Morphine 2 mg/ml ISec IVP PRN ×3 (06:06→21:39)
[2017-12-08] MEDS: metroNIDAZOLE IV 500 mg/100 ml 500 MG/100 ML BAG IVPB SCH (06:06)
[2017-12-08] MEDS: Lactated Ringer's 1,000 ML IV SCH (06:07)
[2017-12-08 06:33] LABS: BASO # 0.02 K/mm3 (0.0-2.0); BASO % 0.4 % (0.0-3.0); EOS % 0.6 % (1.5-5.0); GRAN # 3.12 (1.4-6.5); GRAN % 62.1 % (50.0-68.0); HEMOGLOBIN 12.6 g/dL (12.0-16.0); LYMPH # 1.5 (1.2-3.4); LYMPH % 29.9 % (22.0-35.0); MEAN CELL VOLUME 86.7 fl (80.0-105.0); MEAN CORPUSCULAR HEMOGLOBIN 28.4 pg (25.0-35.0); MEAN CORPUSCULAR HGB CONC 32.7 g/dl (31.0-37.0); MEAN PLATELET VOLUME 9.9 fl (7.0-11.0); MONO # 0.4 (0.1-0.6); RBC 4.44 10^6/uL (3.5-6.1); RED CELL DISTRIBUTION WIDTH 13.4 % (11.5-14.5)
[2017-12-08 06:56] LABS: ALB/GLOB RATIO 1.3 (1.1-1.8); ALBUMIN 3.7 g/dL (3.0-4.8); ALT/SGPT 35 U/L (7-56); AST/SGOT 26 U/L (14-36); BLOOD UREA NITROGEN 4 mg/dL (7-21); CALCIUM 9.1 mg/dL (8.4-10.5); GFR NON-AFRICAN AMERICAN > 60
[2017-12-08] MEDS ORDERED: Lactated Ringer's 1,000 ML IV SCH ×2 (09:13→11:45)
--- NOTE | 2017-12-08 09:30 | PN ---
DATE: 12/08/2017 SUBJECTIVE: The patient has no complaints of any chest pain. No shortness of breath. No headaches or dizziness. She is going to the OR today for cholecystectomy. PHYSICAL EXAMINATION: VITAL SIGNS: Temperature is 98, pulse is 67, blood pressure is 90/50, respirations 18. GENERAL: The patient is lying in bed, flat, comfortable. HEENT: No oral lesion. Anicteric sclerae. Moist mucosa. NECK: No JVD, adenopathy, or thyromegaly. CARDIOVASCULAR: S1 and S2, regular. No murmurs, rubs, or gallops. LUNGS: Clear to auscultation bilaterally. No wheeze, rales, or rhonchi. ABDOMEN: Bowel sounds are positive, soft, nontender and nondistended. EXTREMITIES: No cyanosis, clubbing or edema. Abdominal ultrasound shows cholelithiasis. ASSESSMENT: 1. Abdominal pain secondary to cholelithiasis. 2. Migraine headaches. PLAN: The patient is currently comfortable. She is going to be on Flagyl. She is on IV fluid with lactated Ringer's. I will decrease the patient's IV fluids. The patient is receiving morphine as needed for pain. She is on Tylenol as needed. She is n.p.o. She is cleared for this procedure. She is considered low risk. Andres Beauchamp MD
[2017-12-08] MEDS ORDERED: Propofol 10 mg/ml Inj (20 ML) ONE (09:32)
[2017-12-08] MEDS ORDERED: Succinylcholine 200 mg/10 ml Inj IV ONE (09:32)
[2017-12-08] MEDS ORDERED: Midazolam 2 MG/2 ML VIAL ONE (09:32)
[2017-12-08] MEDS ORDERED: Rocuronium 10 mg/ml (5 ml) ONE (09:32)
[2017-12-08] MEDS ORDERED: Lidocaine 1% Inj (20ml) ONE (09:33)
[2017-12-08] MEDS ORDERED: Iohexol 240 (50 ml) ONE (09:37)
[2017-12-08] MEDS ORDERED: Sevoflurane - Inhalation Anesthetic Liq (250 ml) ONE (09:42)
[2017-12-08] MEDS ORDERED: MetroNIDAZOLE 500 mg/100 ml IVPB ONE (10:00)
[2017-12-08] MEDS ORDERED: Bupivacaine 0.5% Inj(30mL) IJ ONE ×2 (10:03)
--- NOTE | 2017-12-08 10:09 | PN ---
DATE: 12/08/2017 SUBJECTIVE: The patient is lying in bed. She denies any further abdominal pain. She admits to mild nausea, which she attributes to migraines. She denies any fevers or chills. She denies vomiting. PHYSICAL EXAMINATION: VITAL SIGNS: Reveal temperature of 98.8, blood pressure 127/63, heart rate 71. HEENT: Reveals sclerae to be white. Conjunctivae pink. NECK: Supple. CHEST: Lungs are clear. HEART: Reveals a regular rate and rhythm. ABDOMEN: Soft, nontender. No mass. EXTREMITIES: Show no edema. LABORATORY DATA: Reveals normal CBC. Chemistries reveal normal electrolytes. IMPRESSION: A 27-year-old female, admitted to the hospital with right upper quadrant pain with known history of gallstones. This is her second attack requiring a hospitalization in approximately 10 weeks. RECOMMENDATIONS: The patient is to have laparoscopic cholecystectomy today. Sanya Albrecht MD
[2017-12-08] MEDS ORDERED: Neostigmine Methylsulfate 3mg/3ml Syringe IV ONE (10:39)
[2017-12-08] MEDS ORDERED: Glycopyrrolate 0.2 mg/ml (2ml vial) ONE (10:39)
--- NOTE | 2017-12-08 11:37 | PCM.SURG1 ---
Surgeon's Initial Post Op Note - Surgeon's Notes Surgeon: Dr. Bain Section Maintainer: Dr. Dow PGY3, Dr. Tovar PGY4, Elsie DINH IV Type of Anesthesia: General Endo Anesthesia Administered By: Mikey Pre-Operative Diagnosis: Acute Cholecystitis Operative Findings: same Post-Operative Diagnosis: same Operation Performed: Laparoscopic Cholecystectomy Specimen/Specimens Removed: Gallbladder Estimated Blood Loss: EBL {In ML}: 5 Blood Products Given: N/A Drains Used: No Drains Post-Op Condition: Good Date of Surgery/Procedure: 12/08/17 Time of Surgery/Procedure: 11:37
[2017-12-08] MEDS ORDERED: HYDROmorphone 0.5 mg/0.5 ml ISec IVP PRN (11:39)
[2017-12-08] MEDS ORDERED: HYDROmorphone 0.5 mg/0.5 ml ISec IVP ONE (12:40)
[2017-12-08] MEDS ORDERED: HYDROmorphone 0.5 mg/0.5 ml ISec ONE (12:40)
--- NOTE | 2017-12-08 13:42 | OP ---
PROCEDURE DATE: 12/08/2017 PREOPERATIVE DIAGNOSES: Symptomatic cholelithiasis and biliary colic. POSTOPERATIVE DIAGNOSES: Symptomatic cholelithiasis and biliary colic. PROCEDURE: Laparoscopic cholecystectomy. INDICATIONS: This is a 27-year-old female, who developed right upper quadrant pain as well as nausea for the third time. Previous workup has shown a large gallstone within the neck of the gallbladder. The patient, because of recurrent symptoms, elected to have cholecystectomy. DESCRIPTION OF PROCEDURE: After obtaining consent, the patient was placed on the operating table in the supine position. General anesthesia was induced and time-out was completed verifying correct patient, procedure, positioning and site. An NG tube was placed and the abdomen was prepped and draped in the usual sterile fashion. The 0.25% Marcaine was first used to anesthetize the infraumbilical fold and then an infraumbilical incision was made using 11 blade. A Bushra was then used to divide the subcutaneous fat down to the fascia and a Veress needle was inserted into the abdomen. Proper positioning was confirmed by saline meniscus testing. The abdomen was then inflated using carbon dioxide to a pressure of 9 mmHg and a Visiport was used to enter the abdomen. Once laparoscope was inserted, the abdomen was inspected. No injuries from initial trocar placement were noted. Additional trocars were then placed in the following locations. A 5 mm trocar was placed in the right epigastrium and 2 additional 5 mm trocars were placed in the right costal margin. The abdomen was then inspected with no abnormalities. The table was placed in reverse Trendelenburg and right side up. Filmy adhesions in the gallbladder and duodenum as well as transverse colon and liver were then resected using Harmonic as well as electrocautery. The dome of the gallbladder was then grasped with an atraumatic grasper, passed through the lateral port and retracted over the dome of the liver. Infundibulum was then grasped with atraumatic graspers at the midclavicular port and retracted toward the right lower quadrant. This maneuver exposed Calot's triangle and the peritoneum overlying the gallbladder and infundibulum was then incised and cystic duct and cystic artery identified and circumferentially dissected. The cyst duct and artery were then triply clipped, two on the proximal end and one on the distal aspect and divided close to the gallbladder. The gallbladder was then dissected from the peritoneal attachments by electrocautery. Hemostasis was checked and the gallbladder was placed into an endoscopic retrieval bag. The gallbladder fossa was irrigated with saline and hemostasis confirmed. There is no evidence of bleeding or cystic duct stump leakage. All trocars were removed under direct visualization and no bleeding was noted from any of the trocar sites. The laparoscope was then withdrawn and the umbilical trocar removed. The gallbladder was then removed from the abdomen and passed off the table as specimen. The abdomen was allowed to collapse and the fascia of the 10 mm infraumbilical site was closed using [id number] 0 Vicryl suture. The skin for all 4 ports was then closed using subcuticular 4-0 Monocryl and skin glue. The patient tolerated the procedure well, was extubated in the OR, and taken to PACU in stable condition. Kenyetta Dow DO Richard Bain MD CHELSI
[2017-12-08] MEDS: oxyCODONE 5 mg Immediate Release Tab PO PRN (14:01)
[2017-12-08 17:19] VITALS: O2SAT 98
[2017-12-09] MEDS: Morphine 2 mg/ml ISec IVP PRN (03:10)
[2017-12-09] MEDS: oxyCODONE 5 mg Immediate Release Tab PO PRN (06:06)
[2017-12-09 07:08] LABS: BASO # 0.01 K/mm3 (0.0-2.0); BASO % 0.1 % (0.0-3.0); EOS % 0.3 % (1.5-5.0); GRAN # 5.82 (1.4-6.5); GRAN % 74.4 % (50.0-68.0); HEMOGLOBIN 11.9 g/dL (12.0-16.0); LYMPH # 1.3 (1.2-3.4); LYMPH % 16.5 % (22.0-35.0); MEAN CELL VOLUME 87.4 fl (80.0-105.0); MEAN CORPUSCULAR HEMOGLOBIN 28.2 pg (25.0-35.0); MEAN CORPUSCULAR HGB CONC 32.2 g/dl (31.0-37.0); MEAN PLATELET VOLUME 10.1 fl (7.0-11.0); MONO # 0.7 (0.1-0.6); MONO % 8.7 % (1.0-6.0); RBC 4.22 10^6/uL (3.5-6.1); RED CELL DISTRIBUTION WIDTH 13.5 % (11.5-14.5); WHITE BLOOD COUNT 7.8 10^3/ul (4.5-11.0)
[2017-12-09 07:28] LABS: ALB/GLOB RATIO 1.3 (1.1-1.8); ALBUMIN 3.7 g/dL (3.0-4.8); ALT/SGPT 39 U/L (7-56); AST/SGOT 43 U/L (14-36); BLOOD UREA NITROGEN 6 mg/dL (7-21); CALCIUM 9.1 mg/dL (8.4-10.5); GFR NON-AFRICAN AMERICAN > 60
[2017-12-09 08:11] VITALS: BP 111/65; PULSE 77; RESP 18; TEMP 98.9
--- NOTE | 2017-12-09 08:58 | CP.PCM.PN ---
Subjective - Date & Time of Evaluation Date of Evaluation: 12/09/17 Time of Evaluation: 08:54 - Subjective Subjective: General Surgery Dr. Bain Pt S&E @bedside. Pt underwent lap ngozi yesterday. Pt tolerated the procedure well w/ no complications. No acute events overnight. pain well controlled. denies F/C, N/V. tolerating diet. Objective - Vital Signs/Intake and Output Vital Signs (last 24 hours): Temp Pulse Resp BP Pulse Ox 98.9 F 77 18 111/65 98 12/09/17 08:10 12/09/17 08:10 12/09/17 08:10 12/09/17 08:10 12/09/17 08:10 Intake and Output: 12/09/17 12/09/17 06:59 18:59 Intake Total 720 Output Total 0 Balance 720 - Medications Medications: Current Medications Acetaminophen (Tylenol 325mg Tab) 650 mg PO Q4H PRN PRN Reason: Pain, Mild (1-3) Last Admin: 12/07/17 21:54 Dose: 650 mg Docusate Sodium (Colace) 100 mg PO BID AYLA Last Admin: 12/08/17 17:14 Dose: 100 mg Morphine Sulfate (Morphine) 2 mg IVP Q4H PRN PRN Reason: Pain, severe (8-10) Last Admin: 12/09/17 03:10 Dose: 2 mg Ondansetron HCl (Zofran Inj) 4 mg IVP Q6H PRN PRN Reason: Nausea/Vomiting Oxycodone HCl (Oxycodone Immediate Release Tab) 5 mg PO Q6H PRN PRN Reason: Pain, moderate (4-7) Last Admin: 12/09/17 06:06 Dose: 5 mg - Labs Labs: 12/09/17 06:20 12/09/17 06:20 PT 11.6 SECONDS (9.4-12.5) 12/07/17 02:09 INR 1.02 12/07/17 02:09 APTT 26.9 Seconds (25.1-36.5) 12/07/17 02:09 - Constitutional Appears: Non-toxic, No Acute Distress - Head Exam Head Exam: NORMAL INSPECTION - Eye Exam Eye Exam: Normal appearance - ENT Exam ENT Exam: Mucous Membranes Moist - Respiratory Exam Respiratory Exam: NORMAL BREATHING PATTERN. absent: Accessory Muscle Use, Respiratory Distress - Cardiovascular Exam Cardiovascular Exam: REGULAR RHYTHM. absent: Bradycardia, Tachycardia - GI/Abdominal Exam GI & Abdominal Exam: Soft. absent: Distended, Firm, Guarding, Tenderness, Rebound Additional comments: incisions c/d/i - Extremities Exam Extremities Exam: Normal Inspection - Neurological Exam Neurological Exam: Alert, Awake, Oriented x3 - Psychiatric Exam Psychiatric exam: Normal Affect, Normal Mood - Skin Skin Exam: Dry, Intact, Normal Color, Warm Assessment and Plan - Assessment and Plan (Free Text) Assessment: 27 y/o F POD#1 s/p lap ngozi - ADAT - pain management - encourage OOB to chair/Amb/IS use - Pt cleared for discharge from surgical standpoint - no heavy lifting for 4-6 weeks - pt may shower - do not soak incisions; no pools, tubs, baths - f/u w/ Dr. Bain in 7-10 days Pt discussed w/ Dr. Odell Dow DO PGY3
--- NOTE | 2017-12-09 12:25 | PN ---
DATE: 12/09/2017 SUBJECTIVE: The patient is lying in bed comfortable. She is postoperative day #1 status post laparoscopic cholecystectomy. She denies any abdominal pain, nausea, or vomiting. She has mild tenderness at the laparoscopy puncture sites. PHYSICAL EXAMINATION: VITAL SIGNS: Reveal temperature of 98.9, blood pressure of 111/65, heart rate of 77. HEENT: Reveals sclerae to be white. Conjunctivae pink. NECK: Supple. CHEST: Lungs clear. HEART: Reveals regular rate and rhythm. ABDOMEN: Soft, nontender. She has four puncture sites, three in the upper abdomen, one at the umbilicus which were all clean and dry without any drainage. There is minimal diffuse tenderness. EXTREMITIES: Show no edema. LABORATORY DATA: Reveals white blood cell count 7.8, hemoglobin 11.9, BUN 6, creatinine 0.6. Total bilirubin 0.9, AST 43, ALT 39, and alkaline phosphatase of 58. IMPRESSION: A 27-year-old female with recurrent biliary colic, status post laparoscopic cholecystectomy. The patient is doing well postoperatively. RECOMMENDATIONS: The patient is to be discharged as per surgical team. Sanya Albrecht MD
--- NOTE | 2017-12-10 06:38 | DS ---
HISTORY OF PRESENT ILLNESS: This is a 27-year-old female, who came to the hospital with abdominal pain. She has a history of cholelithiasis. She had previous attacks of biliary colic. She was taken to the OR yesterday for laparoscopic cholecystectomy. The patient was found to have large gallstone within the neck of the gallbladder. The patient did well postop. She is comfortable. She has no complaints of any pain. The patient is currently on regular diet. If she is able to tolerate, we will discharge the patient to home. PHYSICAL EXAMINATION: VITAL SIGNS: Temperature is 98.1, pulse of 107, blood pressure is 104/72, respirations 19. GENERAL: The patient is lying in bed, flat, comfortable. HEENT: No oral lesion. Anicteric sclerae. Moist mucosa. NECK: No JVD, adenopathy, or thyromegaly. CARDIOVASCULAR: S1 and S2, regular. No murmurs, rubs, or gallops. LUNGS: Clear to auscultation bilaterally. No wheeze, rales, or rhonchi. ABDOMEN: Bowel sounds are positive, soft, nontender and nondistended. EXTREMITIES: No cyanosis, clubbing or edema. ASSESSMENT: 1. Cholelithiasis. 2. Cholecystectomy postoperative day #1. PLAN: The patient is currently on Colace for constipation and morphine for pain. She is on Percocet as needed. She is on regular diet. We will plan on discharging the patient to home and will follow up as an outpatient with her primary care doctor, Dr. Bain. Andres Beauchamp MD
== END 2017-12-09 17:11 | disposition home or self-care (01) ==
LOC: ED 01:22 → ERH 03:18 → 3RNO 04:16
PROVIDERS: ADMIT Internal Medicine Nephrology; ATTEND Internal Medicine Nephrology
DX: K80.10 Calculus of gallbladder with chronic cholecystitis without obstruction (principal); G43.909 Migraine, unspecified, not intractable, without status migrainosus
CPT/HCPCS: 36415; 47562; 76700; 80053; 81001; 83690; 83735; 84100; 84703; 85025; 85610; 85730; 87086; 88304; 93005; 96361; 96365; 96366; 96367; 96375; 96376; 99285; G0378; J0330; J1170; J2250; J2270; J2405; J2704; J2710; J2765; J3010; J7030; J7120